=== PATIENT | male | born 1940 | race African-American/Black ===

== ENCOUNTER 2017-06-27 10:22 | Emergency (ER) | payer MEDICAID ==
[~2017-06-27] VITALS: Ht 170.2 cm; Wt 84.0 kg
[~2017-06-27 10:22] MED LIST: ASPI-1158; BENA40TA3; BENA40TA66; CLOTRIMAZOLE; DOCUSATE SODIUM; FERROUS SULFATE; GLIPIZIDE; HYDROCHLOROTHIAZIDE; NEOM10DR11; NIFE60TA10; WARF7.5T22
[2017-06-27] MEDS ORDERED: IBUPROFEN 600MG TABLET PO STA (11:41)
[2017-06-27 13:42] VITALS: BP 174/62
== END 2017-06-27 13:43 | disposition home or self-care (01) ==
LOC: ER 11:27
DX: M43.6 Torticollis (principal); M25.512 Pain in left shoulder; M47.892 Other spondylosis, cervical region; I10 Essential (primary) hypertension; E11.9 Type 2 diabetes mellitus without complications; F17.200 Nicotine dependence, unspecified, uncomplicated; Z79.82 Long term (current) use of aspirin; Z88.6 Allergy status to analgesic agent; Z98.890 Other specified postprocedural states
CPT/HCPCS: 72040; 73030; 99284

== ENCOUNTER 2024-12-06 09:09 | Inpatient (IN) | payer MEDICAID ==
[~2024-12-06] VITALS: Ht 167.6 cm; Wt 83.0 kg
[2024-12-06] MEDS: DIPHENHYDRAMINE 50MG/ML VIAL IV ONE (09:05)
[~2024-12-06 09:09] MED LIST changes: -ASPI-1158; +ASPI-1406; -BENA40TA3; +BENA40TA91
[2024-12-06 09:41] LABS: HEMATOCRIT. 36.8 % (42.0-52.0); HEMOGLOBIN. 11.6 g/dL (14.0-18.0); MEAN PLATELET VOLUME 8.4 fl (7.4-10.4); PLATELET 290 x1000/uL (130-400); RED BLOOD CELL COUNT 4.30 mill/uL (4.7-6.1); RED CELL DISTRIBUTION WIDTH 17.4 % (11.6-14.6)
[2024-12-06 10:03] LABS: CREATININE 1.2 mg/dL (0.6-1.3); UREA NITROGEN BLOOD 14 mg/dL (9-23)
[2024-12-06 10:04] LABS: TROPONIN I HIGH SENSITIVITY 10 ng/L (3.0-53)
[2024-12-06] MEDS: METHYLPREDNISOLONE SOD SUCC 125MG/2ML (ACT-O-VIAL) IV ONE (10:12)
[2024-12-06 10:17] LABS: BAND% 2.0 % (1.0-6.0); EOSINOPHILS % MANUAL 20.0 % (0.0-5.0); LYMPHOCYTES % MANUAL 20.0 % (20.0-50.0); MONOCYTES % MANUAL 8.0 % (2.0-8.0); NEUTROPHILS % MANUAL 50.0 % (45.0-75.0)
[2024-12-06 10:22] LABS: PLATELET ESTIMATE NORMAL
[2024-12-06] MEDS ORDERED: ENOXAPARIN 40MG/0.4ML SYR SUBCUT SCH (11:00)
[2024-12-06] MEDS ORDERED: HYDROCODONE/ACETAMINOPHEN 5/325MG TABLET PO PRN (11:00)
[2024-12-06] MEDS ORDERED: IPRATROPIUM/ALBUTEROL 0.5-3(2.5)MG/3ML NEB NEB PRN (11:00)
[2024-12-06] MEDS ORDERED: ONDANSETRON HCL 4MG/2ML INJ IV PRN (11:00)
[2024-12-06] MEDS ORDERED: ACETAMINOPHEN 325MG TABLET PO PRN (11:00)
[2024-12-06] MEDS ORDERED: DEXTROSE 50% WATER 50ML SYRINGE IV PRN (11:00)
[2024-12-06] MEDS ORDERED: NALOXONE HCL 0.4MG/ML VIAL IV PRN (11:00)
[2024-12-06] MEDS ORDERED: ZOLPIDEM TARTRATE 5MG TABLET PO PRN (11:00)
[2024-12-06] MEDS ORDERED: MAGNESIUM/ALUMINUM HYDROXIDE/SIMETHICONE 30ML UDC PO PRN (11:00)
[2024-12-06] MEDS: BLOOD SUGAR DIAGNOSTIC STRIP TEST SCH (11:35)
[2024-12-06] MEDS: INSULIN LISPRO 100 UNITS/ML SUBCUT SCH (11:35)
[2024-12-06] MEDS: APIXABAN 2.5 MG TABLET PO SCH (11:46)
[2024-12-06] MEDS: METHYLPREDNISOLONE SOD SUCC 40MG/ML (ACT-O-VIAL) IV SCH (11:46)
[2024-12-06 11:54] VITALS: BP 155/74; PULSE 67; RESP 20; TEMP 36.8628
[2024-12-06 12:00] VITALS: BP 156/74; PULSE 68; RESP 20; TEMP 36.9; O2SAT 98
[2024-12-06] MEDS ORDERED: METF-1149 PO (12:15)
[2024-12-06] MEDS ORDERED: APIX5TAB PO (12:15)
[2024-12-06 15:06] LABS: CLARITY URINE CLEAR (CLEAR); COLOR URINE YELLOW (YELLOW); GLUCOSE URINE NEGATIVE (NEGATIVE); KETONES URINE NEGATIVE (NEGATIVE); LEUKOCYTE ESTERASE URINE TRACE (NEGATIVE); NITRITE URINE NEGATIVE (NEGATIVE); OCCULT BLOOD URINE NEGATIVE (NEGATIVE); PH URINE 5.0 (4.5-8.0); PROTEIN URINE 1+ (NEGATIVE); SPECIFIC GRAVITY URINE 1.018 (1.005-1.030); UROBILINOGEN URINE 0.2 E.U./dL (0.2-1.0)
[2024-12-06 15:16] LABS: BACTERIA URINE 1+; RBC URINE 0-2 /hpf (0-2); SQUAMOUS EPITHELIAL CELL URINE RARE /lpf (RARE/1+)
[2024-12-06 15:25] LABS: *AMPHETAMINES SCREEN URINE NEGATIVE (NEGATIVE); *BARBITURATES SCREEN URINE NEGATIVE (NEGATIVE); *BENZODIAZEPINES SCREEN URINE NEGATIVE (NEGATIVE); *COCAINE SCREEN URINE NEGATIVE (NEGATIVE); CANNABINOID URINE SCREEN NEGATIVE (NEGATIVE); ECSTASY MDMA SCREEN URINE NEGATIVE (NEGATIVE); METHADONE URINE SCREEN NEGATIVE (NEGATIVE); OPIATES URINE SCREEN NEGATIVE (NEGATIVE); PHENCYCLIDINE URINE SCREEN NEGATIVE (NEGATIVE)
[2024-12-06 16:00] VITALS: BP 139/79; PULSE 86; RESP 18; TEMP 36.5; O2SAT 97
[2024-12-06 20:00] VITALS: BP 149/62; PULSE 70; RESP 16; TEMP 36.4; O2SAT 99
[2024-12-07] VITALS: BP 152/55; PULSE 66; RESP 15; TEMP 36.3; O2SAT 99
[2024-12-07 04:00] VITALS: BP 158/59; PULSE 60; RESP 18; TEMP 36.4; O2SAT 99
[2024-12-07 08:00] VITALS: BP 144/61; PULSE 66; RESP 20; TEMP 36.6; O2SAT 98
[2024-12-07] MEDS: PANTOPRAZOLE SODIUM 40 MG/VIAL IV SCH (08:29)
[2024-12-07 12:00] VITALS: BP 148/72; PULSE 62; RESP 18; TEMP 36.7; O2SAT 98
[2024-12-07 16:00] VITALS: BP 151/71; PULSE 66; RESP 17; TEMP 36.6; O2SAT 96
[2024-12-07 16:38] LABS: HEMATOCRIT. 32.7 % (42.0-52.0); HEMOGLOBIN. 10.4 g/dL (14.0-18.0); MEAN PLATELET VOLUME 9.0 fl (7.4-10.4); PLATELET 285 x1000/uL (130-400); RED BLOOD CELL COUNT 3.86 mill/uL (4.7-6.1); RED CELL DISTRIBUTION WIDTH 17.4 % (11.6-14.6)
[2024-12-07 16:50] LABS: CREATININE 1.5 mg/dL (0.6-1.3); UREA NITROGEN BLOOD 20.0 mg/dL (9-23)
[2024-12-07 17:05] LABS: LYMPHOCYTES % MANUAL 9.0 % (20.0-50.0); MONOCYTES % MANUAL 3.0 % (2.0-8.0); NEUTROPHILS % MANUAL 88.0 % (45.0-75.0); PLATELET ESTIMATE NORMAL
[2024-12-07] MEDS ORDERED: FINA5TAB11 PO (19:39)
[2024-12-07] MEDS ORDERED: APIX2.5T PO (19:39)
[2024-12-07] MEDS ORDERED: ACET-283 PO (19:39)
[2024-12-07] MEDS ORDERED: CHOL200059 PO (19:39)
[2024-12-07] MEDS ORDERED: LATA2.5D14 EACHEYE (19:39)
[2024-12-07] MEDS ORDERED: ATOR10TA69 PO (19:39)
[2024-12-07 20:00] VITALS: BP 146/65; PULSE 66; RESP 19; TEMP 36.7; O2SAT 99
[2024-12-08] VITALS: BP 162/77; PULSE 60; RESP 19; TEMP 36.8; O2SAT 100
[2024-12-08] MEDS: CLONIDINE 0.1MG TABLET PO PRN (00:38)
[2024-12-08 04:00] VITALS: BP 148/68; PULSE 59; RESP 20; TEMP 36.6; O2SAT 99
[2024-12-08 08:00] VITALS: BP 177/75; PULSE 47; RESP 20; TEMP 36.5; O2SAT 97
[2024-12-08 12:00] VITALS: BP 142/60; PULSE 59; RESP 20; TEMP 35.9; O2SAT 100
[2024-12-08 14:44] VITALS: BP 155/72; PULSE 59; TEMP 97.9; O2SAT 99
== END 2024-12-08 15:45 | disposition home or self-care (01) | DRG 420 ==
LOC: ER 09:09 → EDBEDREQTM 10:16 → EDBEDREQ 10:16 → ENRESERV 11:00 → 8WST 11:10
PROVIDERS: ADMIT Internal Medicine; ATTEND Internal Medicine
DX: E11.620 Type 2 diabetes mellitus with diabetic dermatitis (principal); I10 Essential (primary) hypertension; Z88.8 Allergy status to other drugs, medicaments and biological substances
CPT/HCPCS: 36415; 71045; 80048; 80305; 81003; 82962; 84484; 85025; 93005; 97161; 97165; 99285; J1200; J1815; J2470; J2919